=== PATIENT | female | born 1990 | race Caucasian/White ===

== ENCOUNTER 2016-12-03 15:54 | Emergency (ER) | payer OTHER ==
[~2016-12-03 15:54] MED LIST: CEPH-460 PO; DOXY10TA; ZOFR4TAB PO; ZOFR8TAB PO; [UNRECOGNIZED DRUG - CODE] PO
--- NOTE | 2016-12-03 16:35 | PD ---
HPI Chief Complaint cramping, lower abdominal pain Date Seen: Dec 03, 2016 Time Seen: 16:25 (Eliseo Pierson MD R2) Travel History International Travel<30 Days: No Contact w/Intl Traveler<30Days: No (Eliseo Pierson MD R2) History of Present Illness HPI 26 year old at 29 weeks gestation presenting with abdominal cramping and low back pain. Onset was 5 days ago. It came on gradually. It is moderate in intensity. No vaginal bleeding, discharge, contractions, or loss of fluid. She follows up with Allyson Amado. uncomplicated other than hyperemesis for which she is taking Zofran with decent control. No headaches, blurry vision, chest pain, shortness of breath, or edema. She has good movements. No history of trauma. She currently has a UTI being treated with Keflex. She reports no dysuria or increased frequency of urination. (Eliseo Pierson MD R2) History Past Medical History Narrative Medical None (Eliseo Pierson MD) Obstetric History Obstetric History at 29 weeks Prior : twin delivered vaginally at 34 weeks Hyperemesis in last This : uncomplicated other than hyperemesis, takes Zofran and diclegis (Eliseo Pierson MD R2) Past Surgical History Narrative Surgical None (Eliseo Pierson MD) Family History Narrative Family History None (Eliseo Pierson MD R2) Social History Alcohol Use: No Tobacco Use: No Substance Abuse: No (Eliseo Pierson MD R2) Allergies-Medications (Allergen,Severity, Reaction): Coded Allergies: No Known Allergies (Unverified , 12/02/16) Home Meds Active Scripts Cephalexin (Keflex)500 Mg Fuo491 Mg PO Q8H #21 CAP Ref 0 Prov:Tasha ValadezP 12/02/16 Ondansetron (Zofran)8 Mg Tab8 Mg PO TID #30 TAB Ref 2 Prov:Lila Mckeon CNM [facility] 11/04/16 Without A Vit W/ Fe F (Concept Ob 130-92.4-1 mg)1 Cap Cap1 Cap PO DAILY #30 BOTTLE Ref 11 Prov:Lila Mckeon CNMP 11/04/16 Ondansetron (Zofran)4 Mg Tab4 Mg PO Q8HR PRN (NAUSEA OR VOMITING) #30 TAB Ref 0 Prov:Aldo Rider MD R1 10/15/16 Reported Medications Doxylamine-Pyridoxine (Diclegis)10-10 Mg Tab 09/21/16 Review of Systems General / Constitutional: Weight Gain, No: Fever, Weight Loss, Chills Eyes: No: Diploplia, Blurred Vision, Visual changes HENT: No: Headaches, Lightheadedness Cardiovascular: No: Irregular Rhythm, Chest Pain or Discomfort, Palpitations Respiratory: No: Cough, Short of Breath, Wheezing Gastrointestinal: No: Nausea, Vomiting, Diarrhea, Abdominal Pain, Hematemesis Genitourinary: No: Urgency, Frequency, Dysuria, Pelvic Pain Musculoskeletal: Cramping, No: Weakness, Edema Skin: No Rash, No Itching, No Dryness Neurologic: No: Weakness, Dizziness, Syncope, Focal Abnormalities Psychiatric: No: Anxiety, Depression, Suicidal Ideations, Disorder of Thought, Mood Disorder Endocrine: No: Heat Intolerance, Cold Intolerance, Polydipsia, Polyuria Hematologic/Lymphatic: No Lymph Node Enlargement (Eliseo Pierson MD R2) Physical Exam Narrative GENERAL: No acute distress SKIN: No rashes HEAD: Normocephalic and atraumatic. EYES: No scleral icterus. No injection or drainage. ENT: No nasal drainage noted. Mucous membranes pink. Airway patent. NECK: Supple, trachea midline. No JVD. CARDIOVASCULAR: Regular rate and rhythm without murmurs, gallops, or rubs. RESPIRATORY: Breath sounds equal bilaterally. No accessory muscle use. BREASTS: Bilateral exam showed no masses , no retractions, no nipple discharge. ABDOMEN/GI: Abdomen soft, non-tender, bowel sounds present, no rebound, no guarding Gravid to 29 weeks size GENITOURINARY: External Genitalia: intact and normal in appearance BUS glands: [-] Cervix: [-] Dilatation: 1 cm Effacement: 50% Station: -3 Presentation: [-] Membranes: intact Uterine Contractions: none FHT's: Category: 1 Baseline: 140's Reactive: yes Variability: moderate Decels: none EXTREMITIES: No cyanosis or edema. BACK: Nontender without obvious deformity. No CVA tenderness. NEUROLOGICAL: Awake and alert. Motor and sensory grossly within normal limits. Five out of 5 muscle strength in all muscle groups. Normal speech. (Eliseo Pierson MD R2) Data Data Vital Signs Reviewed: Yes (Eliseo Pierson MD R2) MDM Medical Record Reviewed: Yes Interpretation(s) 26 year old at 29 weeks gestation with lower back pain and abdominal cramping - Continuous monitoring, NST - Vital signs - Hydration - No urine culture done at office, will get urine culture. Discuss with Dr. Lu Narrative Course / MDM 26 year old at 29 weeks gestation with lower back pain and abdominal cramping - NST reassuring. Category one tracing. - No contractions. - Urine culture pending, continue Keflex. - Follow up with OB. (Eliseo Pierson MD R2) Diagnosis Diagnosis: Primary Impression: Abdominal cramping affecting Disposition: 01 DISCHARGE HOME Condition: Good Attestation Patient seen and examined with the resident under direct supervision, I agree with the assessment and plan. (Chucky Severino MD) Eliseo Pierson MD R2 Dec 03, 2016 16:35 Chucky Severino MD Dec 03, 2016 17:51
[2016-12-03 18:02] LABS: BLOOD, URINE NEG (NEG); COMMENT (UR) CULT NOT INDICATED; GLUCOSE,URINE NEG (NEG); KETONE, URINE NEG (NEG); MUCUS URINE FEW /lpf (OCC); NITRITE,URINE NEG (NEG); PH, URINE 7.5 (5.0-8.5); SQUAMOUS EPITHELIAL CELL URINE 2 /hpf (0-5); URINE COLOR YELLOW (YELLW/STRAW)
[2017-04-23] MEDS ORDERED: [UNRECOGNIZED DRUG - CODE] PO (10:24)
[2017-04-23] MEDS ORDERED: SPRI28TA PO (10:25)
== END 2016-12-03 17:39 | disposition home or self-care (01) ==
LOC: HOBED 15:54
DX: O26.893 Other specified pregnancy related conditions, third trimester (principal); O21.0 Mild hyperemesis gravidarum; O23.43 Unspecified infection of urinary tract in pregnancy, third trimester; Z3A.29 29 weeks gestation of pregnancy
CPT/HCPCS: 81001; 87086; 99284

== ENCOUNTER 2016-12-07 20:36 | Emergency (ER) | payer OTHER ==
--- NOTE | 2016-12-07 21:37 | PD ---
HPI Chief Complaint Back pain and cramping Date Seen: Dec 07, 2016 Time Seen: 21:20 Travel History International Travel<30 Days: No Contact w/Intl Traveler<30Days: No Known Affected Area: No History of Present Illness HPI 26-year-old 89 at 28 weeks and 4 days of gestation, EDC 02/25/17 patient presents to labor and delivery complaining of back pain, cramping and decreased movement, she denies leakage of fluid and vaginal bleeding. care is with the office of [facility], course is remarkable for episodes of hyperemesis for which she is taking Zofran and UTI which was treated with Keflex, she reports no dysuria or increased frequency of urination at this time. Evaluation revealed patient is eddi irregularly, however vaginal exam shows cervix is closed, long, posterior. Patient presented with the similar complaints on 09/02/17. Para: 1 : 3 Miscarriage: 0 : 1 History Past Medical History Narrative Medical Denies Medical History: Denies Significant Hx Obstetric History Obstetric History Status post spontaneous vaginal delivery of twin at 34 weeks 1, status post termination of 1 Past Surgical History Narrative Surgical Denies Surgical History: No Previous Surgery Family History Narrative Family History Denies Family History: Negative Social History Alcohol Use: No Tobacco Use: No Substance Abuse: No Allergies-Medications (Allergen,Severity, Reaction): Coded Allergies: No Known Allergies (Unverified , 12/02/16) Home Meds Active Scripts Cephalexin (Keflex)500 Mg Ern103 Mg PO Q8H #21 CAP Ref 0 Prov:Tasha Valadez [facility] 12/02/16 Ondansetron (Zofran)8 Mg Tab8 Mg PO TID #30 TAB Ref 2 Prov:Lila Mckeon CNM [facility] 11/04/16 Without A Vit W/ Fe F (Concept Ob 130-92.4-1 mg)1 Cap Cap1 Cap PO DAILY #30 BOTTLE Ref 11 Prov:Lila Mckeon CNM [facility] 11/04/16 Ondansetron (Zofran)4 Mg Tab4 Mg PO Q8HR PRN (NAUSEA OR VOMITING) #30 TAB Ref 0 Prov:Aldo Rider MD R1 10/15/16 Reported Medications Doxylamine-Pyridoxine (Diclegis)10-10 Mg Tab 09/21/16 Review of Systems Except as stated in HPI: all other systems reviewed are Neg Genitourinary: Discharge, Other (back pain and cramping) Musculoskeletal: Cramping, Other (back pain) Physical Exam Narrative GENERAL: Well-nourished, well-developed patient. SKIN: Warm and dry. HEAD: Normocephalic and atraumatic. EYES: No scleral icterus. No injection or drainage. ENT: No nasal drainage noted. Mucous membranes pink. Airway patent. NECK: Supple, trachea midline. No JVD. CARDIOVASCULAR: Regular rate and rhythm without murmurs, gallops, or rubs. RESPIRATORY: Breath sounds equal bilaterally. No accessory muscle use. BREASTS: Bilateral exam showed no masses , no retractions, no nipple discharge. ABDOMEN/GI: Abdomen soft, gravid, non-tender, bowel sounds present, no rebound, no guarding Gravid to 28 weeks size Fundal Height: 28 centimeters GENITOURINARY: External Genitalia: intact and normal in appearance BUS glands: Normal Cervix: Closed, long, posterior, there is present of galvez homogeneous vaginal discharge coating the vaginal gonzalez consistent with possible bacterial vaginosis, sample is sent for wet prep profile, fibronectin test is collected Dilatation: Closed Effacement: 30% Station: -3 Presentation: Cephalic Membranes: Intact Uterine Contractions: irregular FHT's: Category: one Baseline: 140s Reactive: Yes Variability: Moderate Decels: None EXTREMITIES: No cyanosis or edema. BACK: Nontender without obvious deformity. No CVA tenderness. NEUROLOGICAL: Awake and alert. Motor and sensory grossly within normal limits. Five out of 5 muscle strength in all muscle groups. Normal speech. Data Data Vital Signs Reviewed: Yes Orders Vital Signs (Adult) .ON ADMISSION (12/07/16 21:18) ^ Labor Status (12/07/16 21:18) Urinalysis - C+S If Indicated (12/07/16 21:18) ^ Non Stress Test (12/07/16 21:18) ^ Hydration (12/07/16 21:18) Wet Prep Profile (12/07/16 21:18) Fibronectin (12/07/16 21:18) MDM Medical Record Reviewed: Yes Diagnosis Diagnosis: Primary Impression: 28 weeks gestation of Additional Impressions: Vaginal discharge during in second trimester contractions Positive fibronectin at 22 weeks to 34 weeks gestation Disposition: 01 DISCHARGE HOME Condition: Stable Patient Instructions: Early Labor Signs (ED), Movement (ED), General Instructions Additional Instructions: fibronectin tests is positive, patient is eddi irregularly, however cervix is closed, long, posterior. Contractions resolved with terbutaline 0.25 mg subcutaneously 2 doses and IV fluids hydration. Patient is given betamethasone 12 mg intramuscularly times one dose for lung maturity, she is to return to labor and delivery for a second dose. Patient is instructed to return to labor and delivery if increase symptoms, cramping, contractions, leakage of fluids, vaginal bleeding or decreased movement. Drink plenty of fluids. Keep office appointment as scheduled. Monitor kick counts. Take medications as prescribed. Pelvic rest nothing in the vagina. Departure Forms: Tests/Procedures Chcuky Severino MD Dec 07, 2016 21:37
[2016-12-07 21:47] LABS: BLOOD, URINE NEG (NEG); COMMENT (UR) CULT NOT INDICATED; CULTURE IF INDICATED CULT NOT INDICATED; GLUCOSE,URINE NEG (NEG); KETONE, URINE NEG (NEG); MUCUS URINE FEW /lpf (OCC); NITRITE,URINE NEG (NEG); SQUAMOUS EPITHELIAL CELL URINE 2 /hpf (0-5); URINE COLOR YELLOW (YELLW/STRAW)
[2016-12-07] MEDS ORDERED: LACTATED RINGER'S 1000 ML INJ 1,000 ML IV ONE (23:15)
[2016-12-07] MEDS ORDERED: LACTATED RINGER'S 1000 ML INJ 1,000 ML IV SCH (23:15)
[2016-12-07] MEDS ORDERED: TERBUTALINE INJ 1 MG/ML AMP SQ ONE (23:45)
[2016-12-07] MEDS ORDERED: BETAMETHASONE SOD PHOS/ACETATE SUSP 30 MG/5 ML VIAL IM ONE (23:45)
[2016-12-08] MEDS ORDERED: TERBUTALINE INJ 1 MG/ML AMP SQ ONE (00:45)
[2017-04-23] MEDS ORDERED: [UNRECOGNIZED DRUG - CODE] PO (10:24)
[2017-04-23] MEDS ORDERED: SPRI28TA PO (10:25)
== END 2016-12-08 06:40 | disposition home or self-care (01) ==
LOC: HOBED 20:36
DX: O26.893 Other specified pregnancy related conditions, third trimester (principal); N89.8 Other specified noninflammatory disorders of vagina; O62.9 Abnormality of forces of labor, unspecified; R87.89 Other abnormal findings in specimens from female genital organs; M54.9 Dorsalgia, unspecified; Z3A.28 28 weeks gestation of pregnancy
CPT/HCPCS: 81001; 82731; 87210; 96360; 96361; 96372; 99284; J0702; J3105; J7120

== ENCOUNTER 2016-12-08 20:57 | Emergency (ER) | payer OTHER ==
[2016-12-08 21:44] LABS: BLOOD, URINE NEG (NEG); COMMENT (UR) CULT NOT INDICATED; CULTURE IF INDICATED CULT NOT INDICATED; GLUCOSE,URINE NEG (NEG); KETONE, URINE NEG (NEG); MUCUS URINE FEW /lpf (OCC); NITRITE,URINE NEG (NEG); PH, URINE 7.5 (5.0-8.5); SQUAMOUS EPITHELIAL CELL URINE 2 /hpf (0-5); URINE COLOR YELLOW (YELLW/STRAW)
[2016-12-08 21:56] VITALS: BP 110/62; PULSE 105
[2016-12-08 21:57] VITALS: RESP 18; TEMP 98.9
[2016-12-08] MEDS ORDERED: BETAMETHASONE SOD PHOS/ACETATE SUSP 30 MG/5 ML VIAL IM ONE (22:30)
--- NOTE | 2016-12-08 22:42 | PD ---
HPI Chief Complaint Resents complaining of some low back pain and presents also get her second shot of betamethasone Date Seen: Dec 08, 2016 Travel History International Travel<30 Days: No Contact w/Intl Traveler<30Days: No History of Present Illness HPI This patient is a 26-year-old at 28 weeks gestation presents for her second shot of betamethasone and also was complaining of continued low back pain. She was here yesterday and was evaluated noted have a positive fibronectin contractions stopped with simple measures however because the fibronectin ,she was given her steroid shot first 1 and now today's second one. That she denies bleeding or rupture the membranes baby is active and her only complaint is continued nagging low back pain Para: 0 : 3 : 2 History Past Medical History Narrative Medical 2 previous losses Obstetric History Obstetric History 2 previous losses Social History Alcohol Use: No Tobacco Use: No Substance Abuse: No Allergies-Medications (Allergen,Severity, Reaction): Coded Allergies: No Known Allergies (Unverified , 12/02/16) Home Meds Active Scripts Cephalexin (Keflex)500 Mg Uup070 Mg PO Q8H #21 CAP Ref 0 Prov:Tasha Valadez [facility] 12/02/16 Ondansetron (Zofran)8 Mg Tab8 Mg PO TID #30 TAB Ref 2 Prov:Lila Mckeon CNM [facility] 11/04/16 Without A Vit W/ Fe F (Concept Ob 130-92.4-1 mg)1 Cap Cap1 Cap PO DAILY #30 BOTTLE Ref 11 Prov:Lila Mckeon CNM [facility] 11/04/16 Ondansetron (Zofran)4 Mg Tab4 Mg PO Q8HR PRN (NAUSEA OR VOMITING) #30 TAB Ref 0 Prov:Aldo Rider MD R1 10/15/16 Reported Medications Doxylamine-Pyridoxine (Diclegis)10-10 Mg Tab 09/21/16 Physical Exam Narrative GENERAL: Well-nourished, well-developed patient. SKIN: Warm and dry. HEAD: Normocephalic and atraumatic. EYES: No scleral icterus. No injection or drainage. ENT: No nasal drainage noted. Mucous membranes pink. Airway patent. NECK: Supple, trachea midline. No JVD. CARDIOVASCULAR: Regular rate and rhythm without murmurs, gallops, or rubs. RESPIRATORY: Breath sounds equal bilaterally. No accessory muscle use. BREASTS: Bilateral exam showed no masses , no retractions, no nipple discharge. ABDOMEN/GI: Abdomen soft, non-tender, bowel sounds present, no rebound, no guarding no CVA tenderness Gravid to [28-] weeks size Fundal Height: [-27 cm] GENITOURINARY: External Genitalia: intact and normal in appearance BUS glands: [-] Cervix: [-] Dilatation: [Closed-] Effacement: [-] Thick Station: [-3] Presentation: [-] Membranes: [intact ] Uterine Contractions: [none-] FHT's: Category: [1-] Baseline: [133-] Reactive: [yes-] Variability: [mod-] Decels: [none-] EXTREMITIES: No cyanosis or edema. BACK: Nontender without obvious deformity. No CVA tenderness. NEUROLOGICAL: Awake and alert. Motor and sensory grossly within normal limits. Five out of 5 muscle strength in all muscle groups. Normal speech. Data Data Orders Vital Signs (Adult) .ON ADMISSION (12/08/16 21:20) ^ Labor Status (12/08/16 21:20) Urinalysis - C+S If Indicated (12/08/16 21:20) Betamethasone Inj ([place] Soluspan In (12/08/16 22:30) Labs Laboratory Tests Test 12/08/16 21:15 Urine Color YELLOW Urine Turbidity HAZY Urine pH 7.5 Urine Specific [place] 1.012 Urine Protein NEG Urine Glucose (UA) NEG Urine Ketones NEG Urine Occult Blood NEG Urine Nitrite NEG Urine Bilirubin NEG Urine Urobilinogen LESS THAN 2.0 Urine Leukocyte Esterase NEG Urine RBC 1 Urine WBC 1 Urine Squamous Epithelial 2 Cells Urine Amorphous Sediment RARE Urine Mucus FEW Microscopic Urinalysis Comment CULT NOT INDICATED MDM Interpretation(s) This patient is 26-year-old at 28 weeks who presents for repeat shot of betamethasone and also is having some low back pain, she has no other complaints or problems she is not eddi no bleeding or leakage of fluid, heart rate tracing is reactive and there are no regular contractions, patient had positive fibronectin done yesterday received her first shot of betamethasone and now presents with second. On exam her cervix is closed thick and high patient received her second shot of betamethasone. Her urinalysis tonight is negative Plan The patient to continue bedrest at home as much as possible Tylenol for pain as needed heating pad on her back is fine or hot bath, she is to follow-up with [facility] Diagnosis Diagnosis: Primary Impression: Low back pain during in third trimester Additional Impression: Threatened premature labor in third trimester Disposition: 01 DISCHARGE HOME Condition: Stable Jamar Scott II, MD Dec 08, 2016 22:42
[2017-04-23] MEDS ORDERED: [UNRECOGNIZED DRUG - CODE] PO (10:24)
[2017-04-23] MEDS ORDERED: SPRI28TA PO (10:25)
== END 2016-12-08 22:47 | disposition home or self-care (01) ==
LOC: HOBED 20:57
DX: O47.00 False labor before 37 completed weeks of gestation, unspecified trimester (principal); Z3A.28 28 weeks gestation of pregnancy
CPT/HCPCS: 81001; 96372; 99284; J0702

== ENCOUNTER 2017-02-09 16:56 | Emergency (ER) | payer OTHER ==
[~2017-02-09 16:56] MED LIST changes: -CEPH-460 PO
--- NOTE | 2017-02-09 17:40 | PD ---
HPI Chief Complaint Back pain and decreased movement Date Seen: Feb 09, 2017 Time Seen: 17:36 Travel History International Travel<30 Days: No Contact w/Intl Traveler<30Days: No Known Affected Area: No History of Present Illness HPI 26-year-old who is at 37 weeks 5 days who comes in today complaining of decreased movement for 3 days and lower back pain for about the same amount of time. She went to the office today to see [facility] and had a normal exam. Para: 1 : 2 History Past Medical History Medical History: Denies Significant Hx Obstetric History Obstetric History Spontaneous vaginal delivery of twin gestation, 4 pounds a piece Past Surgical History Surgical History: No Previous Surgery Social History Alcohol Use: No Tobacco Use: No Substance Abuse: No Allergies-Medications (Allergen,Severity, Reaction): Coded Allergies: No Known Allergies (Unverified , 02/09/17) Home Meds Active Scripts Without A Vit W/ Fe F (Concept Ob 130-92.4-1 mg)1 Cap Cap1 Cap PO DAILY #30 BOTTLE Ref 11 Prov:Lila Mckeon CNM [facility] 11/04/16 Discontinued Reported Medications Doxylamine-Pyridoxine (Diclegis)10-10 Mg Tab 09/21/16 Discontinued Scripts Ondansetron (Zofran)8 Mg Tab8 Mg PO TID #30 TAB Ref 2 Prov:Lila Mckeon CNM [facility] 11/04/16 Ondansetron (Zofran)4 Mg Tab4 Mg PO Q8HR PRN (NAUSEA OR VOMITING) #30 TAB Ref 0 Prov:Aldo Rider MD R1 10/15/16 Review of Systems Except as stated in HPI: all other systems reviewed are Neg Physical Exam Narrative GENERAL: Well-nourished, well-developed patient. SKIN: Warm and dry. HEAD: Normocephalic and atraumatic. EYES: No scleral icterus. No injection or drainage. ENT: No nasal drainage noted. Mucous membranes pink. Airway patent. NECK: Supple, trachea midline. No JVD. CARDIOVASCULAR: Regular rate and rhythm without murmurs, gallops, or rubs. RESPIRATORY: Breath sounds equal bilaterally. No accessory muscle use. BREASTS: Bilateral exam showed no masses , no retractions, no nipple discharge. ABDOMEN/GI: Abdomen soft, non-tender, bowel sounds present, no rebound, no guarding Gravid to [-35] weeks size Fundal Height: [-] GENITOURINARY: External Genitalia: intact and normal in appearance BUS glands: [-Normal] Cervix: [Posterior-] Dilatation: [1-] Effacement: 50 Station: -3 Presentation: Vertex Membranes: [intact or ruptured] Uterine Contractions: [-Irregular] FHT's: Category: [1-] Baseline: 150 Reactive: Moderate Variability: Moderate Decels: Absent EXTREMITIES: No cyanosis or edema. BACK: Nontender without obvious deformity. No CVA tenderness. NEUROLOGICAL: Awake and alert. Motor and sensory grossly within normal limits. Five out of 5 muscle strength in all muscle groups. Normal speech. Data Data Vital Signs Reviewed: Yes MDM Plan Normal nonstress test Patient will do kick counts twice daily Patient will call her OB provider if she still cannot perceive movement well for follow-up twice weekly testing Diagnosis Diagnosis: Primary Impression: Low back pain during in third trimester Additional Impressions: Decreased movement 37 weeks gestation of Disposition: 01 DISCHARGE HOME Rakel Rogers MD Feb 09, 2017 17:40
[2017-04-23] MEDS ORDERED: [UNRECOGNIZED DRUG - CODE] PO (10:24)
[2017-04-23] MEDS ORDERED: SPRI28TA PO (10:25)
== END 2017-02-09 18:17 | disposition home or self-care (01) ==
LOC: HOBED 16:56
DX: O36.8130 Decreased fetal movements, third trimester, not applicable or unspecified (principal); M54.5 Low back pain; Z3A.37 37 weeks gestation of pregnancy
CPT/HCPCS: 59025

== ENCOUNTER 2017-02-10 06:24 | Inpatient (IN) | payer OTHER ==
[2017-02-10] VITALS (22 sets, daily range): BP systolic 87–138; BP diastolic 47–84; PULSE 92–201; RESP 16–20; TEMP 98.4–99.1; O2SAT 98
[2017-02-10] MEDS ORDERED: SODIUM CHLORID 0.9% 500 ML INJ 500 ML IV PRN (06:45)
[2017-02-10] MEDS ORDERED: CITRIC ACID-SODIUM CITRATE LIQ 30 ML UDC PO SCH (06:45)
[2017-02-10] MEDS ORDERED: ONDANSETRON HCL 4 MG/2 ML VIAL IV PRN (06:45)
[2017-02-10] MEDS ORDERED: LACTATED RINGER'S 1000 ML INJ 1,000 ML IV PRN (06:45)
[2017-02-10] MEDS ORDERED: LIDOCAINE HCL 1% 50 ML VIAL I-DERMAL PRN (06:45)
[2017-02-10] MEDS ORDERED: OXYTOCIN 30 UNITS-500ML PREMIX 500 ML IV ONE (06:45)
[2017-02-10] MEDS ORDERED: MINERAL OIL 10 ML VIAL TOPICAL PRN (06:45)
[2017-02-10] MEDS ORDERED: LIDOCAINE HCL 1% 50 ML VIAL INFIL PRN (06:45)
[2017-02-10] MEDS ORDERED: LACTATED RINGER'S 1000 ML INJ 1,000 ML IV SCH (06:45)
--- NOTE | 2017-02-10 06:54 | HHI.HP ---
History & Physical H&P HPI HPI Chief Complaint Contractions Date Seen: Feb 10, 2017 Time Seen: 06:48 Travel History International Travel<30 Days: No Contact w/Intl Traveler<30Days: No Known Affected Area: No History of Present Illness HPI Patient is 26-year-old who is at 37 weeks and 6 days who was seen yesterday due to lower back pain and decreased movement. She did well she went sleep last night at about 4 hours ago started having intermittent contractions with which worsened over the past 2 hours Para: 1 : 2 History (Limited) History Past Medical History Medical History: Denies Significant Hx Obstetric History Obstetric History Spontaneous vaginal delivery of a twin gestation Past Surgical History Surgical History: No Previous Surgery Family History Family History: Negative Social History Alcohol Use: No Tobacco Use: No Substance Abuse: No Allergies-Medications Allergies-Medications (Allergen,Severity, Reaction): Coded Allergies: No Known Allergies (Unverified , 02/09/17) Home Meds Active Scripts Without A Vit W/ Fe F (Concept Ob 130-92.4-1 mg)1 Cap Cap1 Cap PO DAILY #30 BOTTLE Ref 11 Prov:Lila Mckeon CNM [facility] 11/04/16 Discontinued Reported Medications Doxylamine-Pyridoxine (Diclegis)10-10 Mg Tab 09/21/16 Discontinued Scripts Ondansetron (Zofran)8 Mg Tab8 Mg PO TID #30 TAB Ref 2 Prov:Lila Mckeon CNM [facility] 11/04/16 Ondansetron (Zofran)4 Mg Tab4 Mg PO Q8HR PRN (NAUSEA OR VOMITING) #30 TAB Ref 0 Prov:Aldo Rider MD R1 10/15/16 ROS Review of Systems Except as stated in HPI: all other systems reviewed are Neg Physical Exam Physical Exam Narrative GENERAL: Well-nourished, well-developed patient. SKIN: Warm and dry. HEAD: Normocephalic and atraumatic. EYES: No scleral icterus. No injection or drainage. ENT: No nasal drainage noted. Mucous membranes pink. Airway patent. NECK: Supple, trachea midline. No JVD. CARDIOVASCULAR: Regular rate and rhythm without murmurs, gallops, or rubs. RESPIRATORY: Breath sounds equal bilaterally. No accessory muscle use. BREASTS: Bilateral exam showed no masses , no retractions, no nipple discharge. ABDOMEN/GI: Abdomen soft, non-tender, bowel sounds present, no rebound, no guarding Gravid to [-] weeks size Fundal Height: [-38] GENITOURINARY: External Genitalia: intact and normal in appearance BUS glands: [-Normal] Cervix: [-] Dilatation: [-5] Effacement: 80 Station: -2 Presentation: Vertex Membranes: Intact Uterine Contractions: Every 5 minutes FHT's: Category: 1 Baseline: 140 Reactive: Reactive Variability: Reactive Decels: Absent EXTREMITIES: No cyanosis or edema. BACK: Nontender without obvious deformity. No CVA tenderness. NEUROLOGICAL: Awake and alert. Motor and sensory grossly within normal limits. Five out of 5 muscle strength in all muscle groups. Normal speech. Data Data Data Vital Signs Reviewed: Yes Orders Ob (2e) Additional Admit Info (02/10/17 06:36) Admit To Inpatient (02/10/17 ) Vital Signs (Adult) .Per protocol (02/10/17 06:45) ^ Heart (02/10/17 06:45) ^ Amnioinfusion (02/10/17 06:45) Urinary Catheter Management .ONCE (02/10/17 06:45) Diet Liquid (02/10/17 Breakfast) Lactated Ringer's 1000 Ml Inj (Lr 1000 M (02/10/17 06:45) Lactated Ringer's 1000 Ml Inj (Lr 1000 M (02/10/17 06:45) Sodium Chlorid 0.9% 500 Ml Inj (Ns 500 M (02/10/17 06:45) Sodium Chlor 0.9% 1000 Ml Inj (Ns 1000 M (02/10/17 07:05) Lidocaine 1% Inj (50 Ml) (Xylocaine 1% I (02/10/17 06:45) Citric Acid-Sodium Citrate Liq (Bicitra (02/10/17 06:45) Ondansetron Inj (Zofran Inj) (02/10/17 06:45) Fentanyl Inj (Fentanyl Inj) (02/10/17 06:45) Fentanyl Inj (Fentanyl Inj) (02/10/17 06:45) Complete Blood Count With Diff (02/10/17 06:45) Hold Clot (02/10/17 06:45) Abo/Rh Blood Type (02/10/17 06:45) Urinalysis - C+S If Indicated (02/10/17 06:45) Rapid Plasma Regin (Rpr) W Ttr (02/10/17 06:45) Resp Oxygen Non Rebreathe Mask (02/10/17 ) ^ Epidural / Intrathecal Infus (02/10/17 06:45) Oxytocin 30 Units-500ml Premix (Pitocin (02/10/17 06:45) Lidocaine 1% Inj (50 Ml) (Xylocaine 1% I (02/10/17 06:45) Light Mineral Oil (Muri-Lube Oil) (02/10/17 06:45) Inpatient Certification (02/10/17 ) MDM MDM Plan 26-year-old female who is at 37-38 weeks gestation. Group B strep was collected last week but we have no results presently. Patient will be admitted for labor and desires to have an epidural Diagnosis Diagnosis: Primary Impression: Irregular uterine contractions Additional Impression: 37 weeks gestation of Rakel Rogers MD Feb 10, 2017 06:53
[2017-02-10] MEDS ORDERED: SODIUM CHLOR 0.9% 1000 ML INJ 1,000 ML IV PRN (07:05)
[2017-02-10 07:31] LABS: AUTOMATED NEUTROPHIL # 10.2 TH/MM3 (1.8-7.7); BASOPHIL % 0.3 % (0.0-2.0); EOSINOPHIL % 0.2 % (0.0-4.0); HEMATOCRIT 36.3 % (35.0-46.0); HEMO FLAGS DIFF FINAL; LYMPH % 7.9 % (9.0-44.0); MEAN CELL VOLUME 84.9 FL (80.0-100.0); MEAN CORPUSCULAR HEMOGLOBIN 28.8 PG (27.0-34.0); MEAN CORPUSCULAR HGB CONC 33.9 % (32.0-36.0); MONO % 8.2 % (0.0-8.0); NEUT % 83.4 % (16.0-70.0); PLATELET COUNT 262 TH/MM3 (150-450); RED BLOOD COUNT 4.28 MIL/MM3 (4.00-5.30); WHITE BLOOD COUNT 12.2 TH/MM3 (4.0-11.0)
[2017-02-10] MEDS ORDERED: ePHEDrine/NS 25 MG/5 ML SYR ONE (07:34)
[2017-02-10] MEDS ORDERED: fentaNYL 2MCG-BUPIV 0.125% INJ 100 ML ONE (07:36)
--- NOTE | 2017-02-10 08:27 | HHI.PR ---
VETERINARY PHARMACOLOGIST Note Note Called to patient's room for bradycardia. Approx 4 min of bradycardia was noted, PGY-1 provided AROM and scalp electrode. Slow return to baseline over the next 6 minutes, with patient positioning, supplemental oxygen. Cervix 9/90/-2, vertex. No hypotension noted from epidural. Will watch carefully. Rakel Rogers MD Feb 10, 2017 08:27
[2017-02-10] MEDS ORDERED: DO NOT ADMINISTER ANTICOAGULANTS XX PRN (10:00)
[2017-02-10] MEDS ORDERED: ePHEDrine/NS 25 MG/5 ML SYR IV PRN (10:00)
[2017-02-10] MEDS ORDERED: NO SYSTEM NARCOTICS XX PRN (10:00)
[2017-02-10] MEDS ORDERED: fentaNYL 2MCG-BUPIV 0.125% 100 ML EPIDURAL SCH (10:00)
--- NOTE | 2017-02-10 10:13 | PD.OB.DELI ---
Delivery Date: Feb 10, 2017 Anesthesia: Epidural Episiotomy: None Vaginal Delivery: Normal, Spontaneous Presentation: Occiput anterior Nuchal Cord: None Delayed cord clamping (45 sec): No : Male One Minute : 9 Five Minute : 9 Weight: 2530 grams Infant Care: Suctioned, Responded to stimulation Placenta: Spontaneous delivery, Intact, 3 vessel cord Laceration: No lacerations Additional Information Patient is a 26 year old female now delivered vaginally at 37/6 weeks gestation. Apgars were 9/9. weight 2530 grams. Placenta delivered spontaneously intact with 3-vessel cord. No vaginal lacerations. EBL < 500 cc. ( Urban Mcdowell MD R1) Collaborating MD Comments by PGY1 under direct supervision without complications. (Rakel Rogers MD) Urban Mcdowell MD R1 Feb 10, 2017 10:13 Rakel Rogers MD Feb 12, 2017 20:59
[2017-02-10] MEDS ORDERED: BENZOCAINE 20% TOPICAL SPRAY 60 ML CAN TOPICAL PRN (10:15)
[2017-02-10] MEDS ORDERED: ZOLPIDEM TARTRATE 5 MG TAB PO PRN (10:15)
[2017-02-10] MEDS ORDERED: SODIUM CHLORIDE 0.9% FLUSH 5 ML FLUSH IV FLUSH PRN (10:15)
[2017-02-10] MEDS ORDERED: WITCH HAZEL 50%/GLYCERIN 12.5% 40 PAD JAR TOPICAL PRN (10:15)
[2017-02-10] MEDS ORDERED: ACETAMINOPHEN 325 MG TAB PO PRN (10:15)
[2017-02-10] MEDS ORDERED: ONDANSETRON ODT 4 MG TAB PO PRN (10:15)
[2017-02-10] MEDS ORDERED: ALUMINUM/MAGNESIUM/SIMETH 30 ML CUP PO PRN (10:15)
[2017-02-10] MEDS ORDERED: SODIUM CHLORIDE 0.9% FLUSH 10 ML FLUSH IV FLUSH SCH (11:00)
[2017-02-10] MEDS ORDERED: MEASLES, MUMPS, RUBELLA VACCINE 0.5 ML VIAL SQ ONE (16:00)
[2017-02-10] MEDS ORDERED: DIPHTH/TETANUS/ACEL PERTUSSIS (BOOSTER) 0.5 ML VIAL/PFS IM ONE (16:00)
[2017-02-10] MEDS: SODIUM CHLORIDE 0.9% FLUSH 5 ML FLUSH IV FLUSH SCH (21:00)
[2017-02-10] MEDS: IBUPROFEN 600 MG TAB PO PRN (21:12)
[2017-02-10] MEDS: oxyCODONE/ACETAMINOPHEN 5 MG/325 MG TAB PO PRN (21:12)
[2017-02-10] MEDS: DOCUSATE SODIUM 50 MG/SENNA 8.6 MG TAB PO PRN (21:12)
[2017-02-11] MEDS: oxyCODONE/ACETAMINOPHEN 5 MG/325 MG TAB PO PRN ×3 (04:05→19:25)
[2017-02-11] MEDS: IBUPROFEN 600 MG TAB PO PRN ×3 (04:05→19:26)
--- NOTE | 2017-02-11 07:22 | HHI.OB ---
Subjective Post Day: 1 Remarks Patient seen and examined this morning. AFVSS overnight. day #1. Pain is well controlled. Decreased lochia. Denies dysuria. No breast tenderness. She is feeding the baby via breast and formula. No nausea or vomiting. States she had a bowel movement yesterday evening. Ambulating well without issues. Denies calf pain, shortness of breath, or cough. She otherwise has no other complaints or concerns this morning. Objective Vitals/I&O Vital Signs Date Time Temp Pulse Resp B/P Pulse Ox O2 Delivery O2 Flow Rate FiO2 02/10/17 15:10 102/62 02/10/17 15:10 99.1 104 16 02/10/17 15:10 98 02/10/17 12:00 98.4 92 16 97/62 02/10/17 11:15 97 119/67 02/10/17 11:05 121 110/74 02/10/17 11:00 102/58 02/10/17 11:00 97 02/10/17 10:36 20 02/10/17 10:30 120/76 02/10/17 10:30 98.7 02/10/17 10:30 20 02/10/17 10:16 115 100/47 02/10/17 10:00 113 87/60 02/10/17 10:00 113 87/60 02/10/17 09:46 126 117/65 02/10/17 09:46 126 117/65 02/10/17 08:35 98.8 20 02/10/17 08:30 106 102/49 02/10/17 08:25 105 108/61 02/10/17 08:20 106 110/57 02/10/17 08:16 118 138/71 02/10/17 08:08 119 02/10/17 08:04 201 95/69 02/10/17 08:01 117 120/65 02/10/17 07:50 111 137/84 02/10/17 07:45 111 138/64 02/10/17 07:43 110 132/81 02/10/17 07:34 109 121/65 Objective Remarks GENERAL: Well-nourished, well-developed patient. CARDIOVASCULAR: Regular rate and rhythm without murmurs, gallops, or rubs. RESPIRATORY: Breath sounds equal bilaterally. No accessory muscle use. ABDOMEN/GI: Abdomen soft, non-tender. Fundus: Firm, non-tender at umbilicus. GENITOURINARY: Light bleeding. EXTREMITIES: No cyanosis or edema, non-tender, without signs of DVT. Medications and IVs Current Medications Medications (Trade) Dose Ordered Sig/Katty Route Start Time Stop Time Status Last Admin (NS Flush) 2 ml UNSCH PRN IV FLUSH 02/10/17 10:15 (Tylenol) 650 mg Q4H PRN PO 02/10/17 10:15 (Motrin) 600 mg Q6H PRN PO 02/10/17 10:15 02/11/17 04:05 (Percocet 5-325 Mg) 1 tab Q4H PRN PO 02/10/17 10:15 02/11/17 04:05 (Americaine 20% Top Spr) 1 spray Q4H PRN TOPICAL 02/10/17 10:15 02/10/17 21:13 (Tucks Pads) 1 applic QID PRN TOPICAL 02/10/17 10:15 02/10/17 21:13 (Lady-Colace) 2 tab Q12H PRN PO 02/10/17 10:15 02/10/17 21:12 (Ambien) 5 mg HS PRN PO 02/10/17 10:15 (Mag-Al Plus Susp Liq) 15 ml Q8H PRN PO 02/10/17 10:15 (Zofran Odt) 4 mg Q6H PRN PO 02/10/17 10:15 (NS Flush) 2 ml BID IV FLUSH 02/10/17 11:15 Assessment/Plan Problem List: (1) care following vaginal delivery Assessment and Plan 26 year old now PPD#1. 1. Care - AFVSS - Encouraged OOB, as tolerated - Motrin prn pain - Advised pelvic rest x 6 weeks - Breast and formula feeding - Contraception: Plans to have a bilateral tubal ligation performed, papers have been signed, she will call back to make an appointment - Will f/u with OB provider in 6 weeks - Anticipate discharge tomorrow wdw Urban Crowder MD R1 Feb 11, 2017 07:22
[2017-02-11 07:45] VITALS: BP 111/83; PULSE 67; RESP 18; TEMP 98.3
[2017-02-11 10:23] LABS: RAPID PLASMA REAGIN SCREEN NON-REACTIVE (NON-REACTVE)
[2017-02-11] MEDS: DOCUSATE SODIUM 50 MG/SENNA 8.6 MG TAB PO PRN (12:59)
[2017-02-11] MEDS: SODIUM CHLORIDE 0.9% FLUSH 5 ML FLUSH IV FLUSH SCH (19:25)
[2017-02-11 19:52] VITALS: BP 118/82; PULSE 81; RESP 20; TEMP 97.8
[2017-02-12] MEDS: IBUPROFEN 600 MG TAB PO PRN (06:42)
[2017-02-12] MEDS: DOCUSATE SODIUM 50 MG/SENNA 8.6 MG TAB PO PRN (06:42)
[2017-02-12] MEDS: oxyCODONE/ACETAMINOPHEN 5 MG/325 MG TAB PO PRN ×2 (06:43→10:58)
[2017-02-12] MEDS ORDERED: SENN1TAB PO (07:58)
[2017-02-12] MEDS ORDERED: IBUP-232 PO (07:58)
--- NOTE | 2017-02-12 07:59 | HHI.OB ---
Subjective Post Day: 2 Remarks Patient seen and examined this morning. AFVSS overnight. day #2. Pain is well controlled. Decreased lochia. Denies dysuria. No breast tenderness. She is feeding the baby via breast and formula. Appetite is good. No nausea or vomiting. Ambulating well without issues. Denies calf pain, shortness of breath, cough. She has no other complaints or concerns. (Urban Mcdowell MD R1) Attestation Patient seen and examined. Agree with resident's plan. (Argentina Kauffman MD) Objective Vitals/I&O Vital Signs Date Time Temp Pulse Resp B/P Pulse Ox O2 Delivery O2 Flow Rate FiO2 02/11/17 19:52 97.8 81 20 118/82 Objective Remarks GENERAL: Well-nourished, well-developed patient. CARDIOVASCULAR: Regular rate and rhythm without murmurs, gallops, or rubs. RESPIRATORY: Breath sounds equal bilaterally. No accessory muscle use. ABDOMEN/GI: Abdomen soft, non-tender. Fundus: Firm, non-tender at umbilicus. GENITOURINARY: Light bleeding. EXTREMITIES: No cyanosis or edema, non-tender, without signs of DVT. Medications and IVs Current Medications Medications (Trade) Dose Ordered Sig/Katty Route Start Time Stop Time Status Last Admin (NS Flush) 2 ml UNSCH PRN IV FLUSH 02/10/17 10:15 (Tylenol) 650 mg Q4H PRN PO 02/10/17 10:15 (Motrin) 600 mg Q6H PRN PO 02/10/17 10:15 02/12/17 06:42 (Percocet 5-325 Mg) 1 tab Q4H PRN PO 02/10/17 10:15 02/12/17 06:43 (Americaine 20% Top Spr) 1 spray Q4H PRN TOPICAL 02/10/17 10:15 02/10/17 21:13 (Tucks Pads) 1 applic QID PRN TOPICAL 02/10/17 10:15 02/10/17 21:13 (Lady-Colace) 2 tab Q12H PRN PO 02/10/17 10:15 02/12/17 06:42 (Ambien) 5 mg HS PRN PO 02/10/17 10:15 (Mag-Al Plus Susp Liq) 15 ml Q8H PRN PO 02/10/17 10:15 (Zofran Odt) 4 mg Q6H PRN PO 02/10/17 10:15 (NS Flush) 2 ml BID IV FLUSH 02/10/17 11:15 (Urban Mcdowell MD R1) Assessment/Plan Problem List: (1) care following vaginal delivery Assessment and Plan 26 year old now PPD#2. 1. Care - AFVSS - Encouraged OOB, as tolerated - Motrin prn pain - Advised pelvic rest x 6 weeks - Breast and formula feeding - Contraception: Plans to have a bilateral tubal ligation performed, papers have been signed, she will call back to make an appointment - Will f/u with OB provider in 6 weeks - Stable for discharge today wdw Dr. Kauffman (Urban Mcdowell MD R1) Urban Mcdowell MD R1 Feb 12, 2017 07:59 [place] Kauffman MD Feb 12, 2017 10:02
--- NOTE | 2017-02-12 07:59 | HHI.DCPOC ---
Discharge Care Plan Diagnosis: (1) care following vaginal delivery Report Symptoms to Your Doctor -Temperate above 100.5 degrees -Redness, of incision or excessive or foul smelling drainage -Unusual pain or calf pain -Increased vaginal bleeding -Painful or difficulty urinating -Feelings of extreme sadness or anxiety after 2 weeks Goals to Promote Your Health * To prevent worsening of your condition and complications * To maintain your health at the optimal level Follow up with OB in 6 weeks Pelvic Rest x 6 weeks Directions to Meet Your Goals Take your medications as prescribed Follow your dietary instruction Follow activity as directed Ensure plenty of rest for recovery Drink fluids for hydration Keep your appointments as scheduled Take your immunizations and boosters as scheduled If your symptoms worsen call your PCP, if no PCP go to Urgent Care Center or Emergency Room Smoking is Dangerous to Your Health. Avoid second hand smoke Call the 24-hour crisis hotline for domestic abuse at Herrera Zambrano MD R2 Feb 12, 2017 07:59
[2017-04-23] MEDS ORDERED: [UNRECOGNIZED DRUG - CODE] PO (10:24)
[2017-04-23] MEDS ORDERED: SPRI28TA PO (10:25)
== END 2017-02-12 13:18 | disposition home or self-care (01) | DRG 775 ==
LOC: HOBED 06:24 → H2EA 06:37 → H1EA 11:35
PROVIDERS: ADMIT Obstetrics & Gynecology Obstetrics; ATTEND Obstetrics & Gynecology Obstetrics
PROC: 10E0XZZ Delivery of Products of Conception, External Approach (ICD-10-PCS; principal; 2017-02-10)
PROC: 10907ZC Drainage of Amniotic Fluid, Therapeutic from Products of Conception, Via Natural or Artificial Opening (ICD-10-PCS; 2017-02-10)
PROC: 4A1H74Z Monitoring of Products of Conception, Cardiac Electrical Activity, Via Natural or Artificial Opening (ICD-10-PCS; 2017-02-10)
PROC: 10H073Z Insertion of Monitoring Electrode into Products of Conception, Via Natural or Artificial Opening (ICD-10-PCS; 2017-02-10)
PROC: 3E0S3CZ (ICD-10-PCS; 2017-02-10)
PROC: 00HU33Z Insertion of Infusion Device into Spinal Canal, Percutaneous Approach (ICD-10-PCS; 2017-02-10)
DX: O36.8130 Decreased fetal movements, third trimester, not applicable or unspecified (principal); O76 Abnormality in fetal heart rate and rhythm complicating labor and delivery; Z37.0 Single live birth; Z3A.37 37 weeks gestation of pregnancy
CPT/HCPCS: 59025; 85025; 86592; 99285; J7120

== ENCOUNTER 2017-03-16 15:14 | Emergency (ER) | payer OTHER ==
[~2017-03-16] VITALS: Ht 157.5 cm; Wt 66.0 kg
[~2017-03-16 15:14] MED LIST changes: -DOXY10TA; +IBUP-232 PO; +SENN1TAB PO; -ZOFR4TAB PO; -ZOFR8TAB PO
[2017-03-16 15:20] VITALS: BP 123/87; PULSE 86; RESP 15; TEMP 98; O2SAT 99
--- NOTE | 2017-03-16 15:25 | PD ---
Physical Exam Date Seen by Provider: Mar 16, 2017 Time Seen by Provider: 15:22 Narrative Pt is 1 month and states she has had consistent bleeding since she gave . She denies any increase in abdominal pain or bleeding. Symptoms have been consistent. Pt has not attempted to contact her manager visual. Her pain is cramping in nature and a 5/10. VSS. Data Data Last Documented VS Vital Signs Date Time Temp Pulse Resp B/P Pulse Ox O2 Delivery O2 Flow Rate FiO2 03/16/17 15:20 98.0 86 15 123/87 99 MDM Supervised Visit with EDGAR: Krystal Hayward Mar 16, 2017 15:25
--- NOTE | 2017-03-16 15:31 | PD ---
HPI Chief Complaint: Collator Problem/Complaint Time Seen by Provider: 15:31 Travel History International Travel<30 days: No Contact w/Intl Traveler<30days: No Traveled to known affect area: No History of Present Illness HPI 26-year-old female who is approximately one month presents to emergency department for evaluation of heavy vaginal bleeding. Patient states she has not stopped bleeding since giving to her son however it has become heavier. She has had lower abdominal cramping worsening of the last week. She states this morning it was significant, sharp, constant and she passed a large piece of tissue. She brings this with her. She states she has been unable to follow-up with her PIGMENT FURNACE TENDER but has follow-up on March 25. Denies any fever or chills. No nausea or vomiting. She has been sexually active twice with her partner whom she has a monogamous relationship with. Denies any other vaginal discharge. She has no urinary symptoms to report. No other symptoms at this time. PFSH Past Medical History Medical History: Denies Significant Hx Hx Anticoagulant Therapy: No Cardiovascular Problems: No Chemotherapy: No Cerebrovascular Accident: No Diabetes: No Diminished Hearing: No Respiratory: No ?: Not : 2 Para: 2 Miscarriage: 1 Dilation and Curettage (D&C): Yes Past Surgical History Gynecologic Surgery: Yes (D&C) Hysterectomy: No Social History Alcohol Use: No Tobacco Use: No Substance Use: No Allergies-Medications (Allergen,Severity, Reaction): Coded Allergies: No Known Allergies (Unverified , 02/09/17) Reported Meds & Prescriptions Reported Meds & Active Scripts Active Keflex (Cephalexin) 500 Mg Cap 500 Mg PO Q12H 7 Days Concept Ob 130-92.4-1 mg ( Without A Vit W/ Fe F) 1 Cap Cap 1 Cap PO DAILY Reported Tylenol (Acetaminophen) 325 Mg Cap 325 Mg PO Q6H PRN Review of Systems Except as stated in HPI: all other systems reviewed are Neg Physical Exam Narrative GENERAL: Well-nourished female patient in no acute distress SKIN: Focused skin assessment warm/dry. HEAD: Atraumatic. Normocephalic. EYES: Pupils equal and round. No scleral icterus. No injection or drainage. ENT: No nasal bleeding or discharge. Mucous membranes pink and moist. NECK: Trachea midline. No JVD. CARDIOVASCULAR: Regular rate and rhythm. No murmur appreciated. RESPIRATORY: No accessory muscle use. Clear to auscultation. Breath sounds equal bilaterally. GASTROINTESTINAL: Abdomen soft, nontender. Mild suprapubic tenderness to palpation. Hepatic and splenic margins not palpable. GENITOURINARY: Normal external genitalia without lesions or erythema. Vaginal vault mild amount of brown drainage.. Cervical os was slightly open, less than 1 cm with brown drainage. Slightly friable without cervical motion tenderness. Uterus nontender and nonenlarged. Bilateral adnexa nontender without masses. MUSCULOSKELETAL: No obvious deformities. No clubbing. No cyanosis. No edema. NEUROLOGICAL: Awake and alert. No obvious cranial nerve deficits. Motor grossly within normal limits. Normal speech. PSYCHIATRIC: Appropriate mood and affect; insight and judgment normal. Data Data Last Documented VS Vital Signs Date Time Temp Pulse Resp B/P Pulse Ox O2 Delivery O2 Flow Rate FiO2 03/16/17 15:35 Room Air 03/16/17 15:20 98.0 86 15 123/87 99 Orders Complete Blood Count With Diff (03/16/17 15:32) Comprehensive Metabolic Panel (03/16/17 15:32) Prothrombin Time / Inr (Pt) (03/16/17 15:32) Act Partial Throm Time (Ptt) (03/16/17 15:32) Ua Includes Microscopic (03/16/17 15:32) Iv Access Insert/Monitor (03/16/17 15:32) Ecg Monitoring (03/16/17 15:32) Oximetry (03/16/17 15:32) Sodium Chloride 0.9% Flush (Ns Flush) (03/16/17 15:45) Wet Prep Profile (03/16/17 15:45) Us Pelvis Comp Collator/Non-Preg (03/16/17 ) Labs Laboratory Tests Test 03/16/17 03/16/17 03/16/17 15:59 16:01 16:18 White Blood Count 6.7 TH/MM3 Red Blood Count 4.03 MIL/MM3 Hemoglobin 11.6 GM/DL Hematocrit 34.5 % Mean Corpuscular Volume 85.5 FL Mean Corpuscular Hemoglobin 28.7 PG Mean Corpuscular Hemoglobin 33.5 % Concent Red Cell Distribution Width 14.7 % Platelet Count 344 TH/MM3 Mean Platelet Volume 8.7 FL Neutrophils (%) (Auto) 62.0 % Lymphocytes (%) (Auto) 23.5 % Monocytes (%) (Auto) 9.8 % Eosinophils (%) (Auto) 4.2 % Basophils (%) (Auto) 0.5 % Neutrophils # (Auto) 4.1 TH/MM3 Lymphocytes # (Auto) 1.6 TH/MM3 Monocytes # (Auto) 0.7 TH/MM3 Eosinophils # (Auto) 0.3 TH/MM3 Basophils # (Auto) 0.0 TH/MM3 CBC Comment DIFF FINAL Differential Comment Prothrombin Time 10.3 SEC Prothromb Time International 0.9 RATIO Ratio Activated Partial 21.1 SEC Thromboplast Time Sodium Level 142 MEQ/L Potassium Level 3.7 MEQ/L Chloride Level 110 MEQ/L Carbon Dioxide Level 23.5 MEQ/L Anion Gap 9 MEQ/L Blood Urea Nitrogen 7 MG/DL Creatinine 0.54 MG/DL Estimat Glomerular Filtration 135 ML/MIN Rate Random Glucose 98 MG/DL Calcium Level 8.7 MG/DL Total Bilirubin 0.1 MG/DL Aspartate Amino Transf 28 U/L (AST/SGOT) Alanine Aminotransferase 31 U/L (ALT/SGPT) Alkaline Phosphatase 60 U/L Total Protein 7.8 GM/DL Albumin 3.1 GM/DL Urine Color YELLOW Urine Turbidity HAZY Urine pH 8.0 Urine Specific [place] 1.018 Urine Protein NEG mg/dL Urine Glucose (UA) NEG mg/dL Urine Ketones NEG mg/dL Urine Occult Blood MOD Urine Nitrite NEG Urine Bilirubin NEG Urine Urobilinogen 2.0 MG/DL Urine Leukocyte Esterase LARGE Urine RBC 13 /hpf Urine WBC 5 /hpf Urine Squamous Epithelial 5 /hpf Cells Microscopic Urinalysis Comment Clue Cells (Wet Prep) NONE SEEN Vaginal Trichomonas (Wet Prep) NONE SEEN Vaginal Yeast (Wet Prep) NONE SEEN MDM Medical Decision Making Medical Screen Exam Complete: Yes Emergency Medical Condition: Yes Medical Record Reviewed: Yes Differential Diagnosis bleeding versus retained products versus UTI versus STD Narrative Course 26-year-old female presents to emergency department for evaluation of vaginal bleeding and lower abdominal cramping. Patient appears without distress. Mild suprapubic tenderness to palpation. Vaginal vault does have a brown discharge in it. Cervix is slightly open and mildly friable. No CMT. Patient does bring with her this 4 cm by to 2 centimeter piece of tissue that is sent for pathology evaluation. Urinalysis is hazy with moderate local blood, large leukocyte esterase, 13 RBC, 5 WBC. Wet prep is negative. Patient is started on Keflex by mouth. Last Impressions Pelvis Ultrasound 03/16/17 0000 Signed Impressions: Service Date/Time: Thursday, March 16, 2017 17:40 - CONCLUSION: 1. Small amount of fluid in endometrial canal. 2. Trace fluid adjacent to the right ovary. 3. Simple cyst left ovary measures 2.5 cm. Nicolas Javier MD Ultrasound results are discussed with patient. She is encouraged to keep her appointment with MARLENY Gambino, she agrees to return immediately with any acute worsening symptoms. 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
[2017-03-16] MEDS ORDERED: ACET1CAP18 PO (15:32)
[2017-03-16] MEDS ORDERED: SODIUM CHLORIDE 0.9% FLUSH 10 ML FLUSH IV FLUSH PRN (15:45)
[2017-03-16 16:22] LABS: AUTOMATED NEUTROPHIL # 4.1 TH/MM3 (1.8-7.7); BASOPHIL % 0.5 % (0.0-2.0); EOSINOPHIL # 0.3 TH/MM3 (0-0.4); EOSINOPHIL % 4.2 % (0.0-4.0); HEMATOCRIT 34.5 % (35.0-46.0); HEMO FLAGS DIFF FINAL; LYMPH % 23.5 % (9.0-44.0); LYMPHOCYTE # 1.6 TH/MM3 (1.0-4.8); MEAN CELL VOLUME 85.5 FL (80.0-100.0); MEAN CORPUSCULAR HEMOGLOBIN 28.7 PG (27.0-34.0); MEAN CORPUSCULAR HGB CONC 33.5 % (32.0-36.0); MONO % 9.8 % (0.0-8.0); PLATELET COUNT 344 TH/MM3 (150-450); RED BLOOD COUNT 4.03 MIL/MM3 (4.00-5.30); RED CELL DISTRIBUTION WIDTH 14.7 % (11.6-17.2); WHITE BLOOD COUNT 6.7 TH/MM3 (4.0-11.0)
[2017-03-16 16:32] LABS: BLOOD, URINE MOD (NEG); GLUCOSE,URINE NEG (NEG); KETONE, URINE NEG (NEG); NITRITE,URINE NEG (NEG); SQUAMOUS EPITHELIAL CELL URINE 5 /hpf (0-5); URINE COLOR YELLOW (YELLW/STRAW)
[2017-03-16 16:32] LABS: APTT (PATIENT) 21.1 SEC (24.3-30.1); INTERNATIONAL NORMALIZED RATIO 0.9 RATIO; PROTHROMBIN TIME - PATIENT 10.3 SEC (9.8-11.6)
[2017-03-16 16:46] LABS: ALKALINE PHOSPHATASE 60 U/L (45-117); TOTAL BILIRUBIN ADULT 0.1 MG/DL (0.2-1.0)
[2017-03-16 16:49] LABS: ALT (GPT) 31 U/L (10-53); ANION GAP 9 MEQ/L (5-15); AST (GOT) 28 U/L (15-37); BICARBONATE 23.5 MEQ/L (21.0-32.0); BLOOD UREA NITROGEN 7 MG/DL (7-18); CHLORIDE 110 MEQ/L (98-107); GLOMERULAR FILTRATION RATE 135 ML/MIN (>89); POTASSIUM 3.7 MEQ/L (3.5-5.1); SODIUM (NA) 142 MEQ/L (136-145)
--- NOTE | 2017-03-16 17:00 | PD ---
Data Data Last Documented VS Vital Signs Date Time Temp Pulse Resp B/P Pulse Ox O2 Delivery O2 Flow Rate FiO2 03/16/17 15:35 Room Air 03/16/17 15:20 98.0 86 15 123/87 99 Orders Complete Blood Count With Diff (03/16/17 15:32) Comprehensive Metabolic Panel (03/16/17 15:32) Prothrombin Time / Inr (Pt) (03/16/17 15:32) Act Partial Throm Time (Ptt) (03/16/17 15:32) Ua Includes Microscopic (03/16/17 15:32) Iv Access Insert/Monitor (03/16/17 15:32) Ecg Monitoring (03/16/17 15:32) Oximetry (03/16/17 15:32) Sodium Chloride 0.9% Flush (Ns Flush) (03/16/17 15:45) Wet Prep Profile (03/16/17 15:45) Us Pelvis Comp W Transvaginal (03/16/17 ) Labs Laboratory Tests Test 03/16/17 03/16/17 03/16/17 15:59 16:01 16:18 White Blood Count 6.7 TH/MM3 Red Blood Count 4.03 MIL/MM3 Hemoglobin 11.6 GM/DL Hematocrit 34.5 % Mean Corpuscular Volume 85.5 FL Mean Corpuscular Hemoglobin 28.7 PG Mean Corpuscular Hemoglobin 33.5 % Concent Red Cell Distribution Width 14.7 % Platelet Count 344 TH/MM3 Mean Platelet Volume 8.7 FL Neutrophils (%) (Auto) 62.0 % Lymphocytes (%) (Auto) 23.5 % Monocytes (%) (Auto) 9.8 % Eosinophils (%) (Auto) 4.2 % Basophils (%) (Auto) 0.5 % Neutrophils # (Auto) 4.1 TH/MM3 Lymphocytes # (Auto) 1.6 TH/MM3 Monocytes # (Auto) 0.7 TH/MM3 Eosinophils # (Auto) 0.3 TH/MM3 Basophils # (Auto) 0.0 TH/MM3 CBC Comment DIFF FINAL Differential Comment Prothrombin Time 10.3 SEC Prothromb Time International 0.9 RATIO Ratio Activated Partial 21.1 SEC Thromboplast Time Sodium Level 142 MEQ/L Potassium Level 3.7 MEQ/L Chloride Level 110 MEQ/L Carbon Dioxide Level 23.5 MEQ/L Anion Gap 9 MEQ/L Blood Urea Nitrogen 7 MG/DL Creatinine 0.54 MG/DL Estimat Glomerular Filtration 135 ML/MIN Rate Random Glucose 98 MG/DL Calcium Level 8.7 MG/DL Total Bilirubin 0.1 MG/DL Aspartate Amino Transf 28 U/L (AST/SGOT) Alanine Aminotransferase 31 U/L (ALT/SGPT) Alkaline Phosphatase 60 U/L Total Protein 7.8 GM/DL Albumin 3.1 GM/DL Urine Color YELLOW Urine Turbidity HAZY Urine pH 8.0 Urine Specific [place] 1.018 Urine Protein NEG mg/dL Urine Glucose (UA) NEG mg/dL Urine Ketones NEG mg/dL Urine Occult Blood MOD Urine Nitrite NEG Urine Bilirubin NEG Urine Urobilinogen 2.0 MG/DL Urine Leukocyte Esterase LARGE Urine RBC 13 /hpf Urine WBC 5 /hpf Urine Squamous Epithelial 5 /hpf Cells Microscopic Urinalysis Comment Clue Cells (Wet Prep) NONE SEEN Vaginal Trichomonas (Wet Prep) NONE SEEN Vaginal Yeast (Wet Prep) NONE SEEN MDM Supervised Visit with EDGAR: Yes Narrative Course The history, exam, and medical decision-making in the associated midlevel provider note were completed with my assistance. I reviewed and agree with the findings presented. I attest that I had a [id number] encounter with the patient on the same day, and personally performed and documented my assessment and findings in the medical record. *My assessment and Findings: This is a 26-year-old female who presents to the emergency department one month with heavy vaginal bleeding and passing substance that appeared to be tissue. Labs are all reassuring. Pelvic ultrasound will be obtained to evaluate for retained products. If normal I think patient can be discharged and this likely reflects normal menstrual cycle. Estefani Deleon MD Mar 16, 2017 17:00
--- NOTE | 2017-03-16 18:30 | RADRPT ---
EXAM DATE/TIME: 03/16/2017 17:40 [facility] COMPARISON: No previous studies available for comparison. INDICATIONS : Bleeding 1 month . MEDICAL HISTORY : . Rheumatoid arthritis. SURGICAL HISTORY : Dilation and curettage. ENCOUNTER: Subsequent ACUITY: 1 month PAIN SCORE: 0/10 LOCATION: Bilateral pelvis MEASUREMENTS: UTERUS: 12.6 x 6.2 x 5.3 cm ENDOMETRIAL STRIPE: 2 mm RIGHT OVARY: 3.1 x 2.1 x 1.6 cm LEFT OVARY: 3.5 x 2.8 x 2.5 cm FINDINGS: UTERUS: There is fluid within the endometrial canal. No color flow. No solid appearing material. RIGHT OVARY: Ovary contains no mass or significant cystic lesion. LEFT OVARY: Small cyst measures 2.5 x 2.2 x 1.9 cm. MISCELLANEOUS: Trace free fluid adjacent to the right ovary. CONCLUSION: 1. Small amount of fluid in endometrial canal. 2. Trace fluid adjacent to the right ovary. 3. Simple cyst left ovary measures 2.5 cm. Nicolas Javier MD on March 16, 2017 at 18:24 Board Certified Radiologist. This report was verified electronically.
[2017-03-16] MEDS ORDERED: CEPH-460 PO (18:36)
[2017-04-23] MEDS ORDERED: [UNRECOGNIZED DRUG - CODE] PO (10:24)
[2017-04-23] MEDS ORDERED: SPRI28TA PO (10:25)
== END 2017-03-16 18:50 | disposition home or self-care (01) ==
LOC: NEPD 15:14
DX: O72.2 Delayed and secondary postpartum hemorrhage (principal); O86.20 Urinary tract infection following delivery, unspecified; N83.202 Unspecified ovarian cyst, left side
CPT/HCPCS: 76856; 80053; 81001; 85025; 85610; 85730; 87210; 88305

== ENCOUNTER 2017-12-13 14:25 | Emergency (ER) | payer OTHER ==
[~2017-12-13 14:25] MED LIST changes: +CELE20TA PO; -IBUP-232 PO; -SENN1TAB PO; +SPRI28TA PO
[2017-12-13 14:28] VITALS: BP 134/80; PULSE 99; RESP 18; TEMP 99; O2SAT 99
--- NOTE | 2017-12-13 15:23 | RADRPT ---
EXAM DATE/TIME: 12/13/2017 14:54 [facility] COMPARISON: No previous studies available for comparison. INDICATIONS : Injured left foot while going down steps 4 days ago, pain is in the arch of the foot and in the great toe MEDICAL HISTORY : None. SURGICAL HISTORY : None. ENCOUNTER: Initial ACUITY: 4 - 6 days PAIN SCORE: 8/10 LOCATION: Left foot FINDINGS: Three view examination of the left foot demonstrates no soft tissue swelling, dislocation, or fractur e. The tarsal bones appear intact. The interphalangeal and metatarsophalangeal joints are intact. The calcaneus is intact. Bony mineralization is normal. CONCLUSION: Unremarkable examination of the left foot. Rocky Barlow Jr., MD on December 13, 2017 at 15:19 Board Certified Radiologist. This report was verified electronically.
--- NOTE | 2017-12-13 16:46 | PD ---
HPI Chief Complaint: Musculoskeletal Complaint Time Seen by Provider: 16:42 Travel History International Travel<30 days: No Contact w/Intl Traveler<30days: No Traveled to known affect area: No History of Present Illness HPI Patient comes emergency department complaining of pain over her left foot plantar surface first metatarsal it began approximately 4 days ago after she slid down a few stairs. Patient has uncertain exactly how her foot went when she fell. Describes pain as a burning-like sensation without radiation. Pain improves with walking and is worse with resting. Denies any fevers, head injury , , or history of IV drug use. PFSH Past Medical History Hx Anticoagulant Therapy: No Cardiovascular Problems: No Chemotherapy: No Cerebrovascular Accident: No Diabetes: No Diminished Hearing: No Respiratory: No ?: Not LMP: 12/09/17 : 3 Para: 3 Miscarriage: 1 Dilation and Curettage (D&C): Yes Past Surgical History Gynecologic Surgery: Yes (D&C) Hysterectomy: No Other Surgery: Yes Social History Alcohol Use: No Tobacco Use: No Substance Use: No Allergies-Medications (Allergen,Severity, Reaction): Coded Allergies: No Known Allergies (Unverified , 05/27/17) Reported Meds & Prescriptions Reported Meds & Active Scripts Active Naprosyn (Naproxen) 500 Mg Tab 500 Mg PO Q12HR PRN Celexa (Citalopram Hydrobromide) 20 Mg Tab 20 Mg PO DAILY Sprintec 28 (Norgestimate-Ethinyl Estradiol) 0.25-35 mg-Mcg Tab 1 Tab PO DAILY Concept Ob 130-92.4-1 mg ( Without A Vit W/ Fe F) 1 Cap Cap 1 Cap PO DAILY Review of Systems Except as stated in HPI: all other systems reviewed are Neg Physical Exam Narrative GENERAL: Well-developed, overly nourished, in no acute distress, and non-ill appearing. SKIN: Focused skin assessment warm and dry. HEAD: Atraumatic. Normocephalic. EYES: Pupils equal and round. EOMI. No scleral icterus. No injection or drainage. ENT: No nasal bleeding or discharge. Mucous membranes pink and moist. NECK: Trachea midline. Supple. No nuclear rigidity. CARDIOVASCULAR: Dorsal pulses 2+, intact, and equal bilaterally. Capillary refill less than 2 seconds RESPIRATORY: No accessory muscle use. No respiratory distress. MUSCULOSKELETAL: No obvious deformities. No clubbing. No cyanosis. No edema. Full range of motion. Ankle: Neagative anterior draw and Allan test. Negative Dolores's sign. No laxity noted with passive inversion and eversion of BL ankles. Negative squeeze test. Pulses equal BL distal to injury. Capillary refill less than 2 seconds distal to injury and equal BL. Sensation equal BL 1st web space. FROM of toes distal to injury and equal BL. NV intact distal to injury and equal BL. Dorsal pulses equal BL. Patient reports tenderness palpation over plantar surface of left foot first metatarsal. There is no crepitus. NEUROLOGICAL: Awake and alert. No obvious cranial nerve deficits. Motor grossly within normal limits. Normal speech. PSYCHIATRIC: Appropriate mood and affect; insight and judgment normal. Data Data Last Documented VS Vital Signs Date Time Temp Pulse Resp B/P (MAP) Pulse Ox O2 Delivery O2 Flow Rate FiO2 12/13/17 14:28 99.0 99 18 134/80 (98) 99 Room Air Orders Orders Foot, Complete ([id number]) (12/13/17 ) Ed Discharge Order (12/13/17 16:42) Splint Or Brace Apply/Monitor (12/13/17 16:42) [facility] Medical Decision Making Medical Screen Exam Complete: Yes Emergency Medical Condition: Yes Interpretation(s) Last Impressions Foot X-Ray 12/13/17 0000 Signed Impressions: Service Date/Time: Wednesday, December 13, 2017 14:54 - CONCLUSION: Unremarkable examination of the left foot. Rocky Barlow Jr., MD Differential Diagnosis Fracture, sprain, contusion, dislocation Narrative Course There is no clinical evidence for fracture. There is no clinical evidence to suspect bony injury by exam. Radiographic examination revealed no fracture seen at this time. No obvious ligamental injury or internal derangement is noted at this time. The distal extremity appears neurovascularly intact, without evidence of neurovascular injury nor compartment syndrome. Tendon exam also was intact. The effected limb was splinted. The patient was discharged on pain medication along with sprain and splint care instructions and given warnings for vascular compromise. The patient is to follow up with primary care provider or automotive dismantler. The patient agrees with plan. Patient in no obvious distress upon re-evaluation. All pertinent Radiology result(s) discussed with patient. Patient was asked if they wanted to speak to my attending, which the patient did not wish to do at this time. Any questions/ concerns in reference to patient diagnosis/condition discussed and clarified prior to patient's discharge. Reinforced sheer importance of close follow up with patient's primary physician or primary care clinic. Instructed patient to return to ED immediately, if symptoms return/worsen. Patient showed understanding of above instructions. Further instructions and recommendations were detailed in discharge paperwork. Patient ambulated without difficulty out of ED at discharge. Diagnosis Primary Impression: Sprain of left foot Qualified Codes: S93.602A - Unspecified sprain of left foot, initial encounter Referrals: Stevo Mckeon DPM Patient Instructions: Foot Sprain (ED), General Instructions Additional Instructions: Follow-up with your primary care physician and/or automotive dismantler this week for reevaluation. Take all medication as prescribed. Apply ice to affected area 20 minutes per hour as needed for pain. Return to the emergency department if symptoms get worse. Med/Other Pt SpecificInfo: Prescription(s) given Scripts Naproxen (Naprosyn) 500 Mg Tab 500 MG PO Q12HR Y for PAIN SCALE 1 TO 10, #14 TAB 0 Refills Prov: Clarice Parson MD 12/13/17 Disposition: 01 DISCHARGE HOME Condition: Stable Syed Archer Dec 13, 2017 16:46
[2017-12-13] MEDS ORDERED: NAPR500 PO (16:47)
== END 2017-12-13 17:16 | disposition home or self-care (01) ==
LOC: NEPK 14:25
DX: S93.602A Unspecified sprain of left foot, initial encounter (principal); W10.9XXA Fall (on) (from) unspecified stairs and steps, initial encounter
CPT/HCPCS: 29515; 73630; 99283; L3260